=== PATIENT | female | born 1955 | race Caucasian/White ===

== ENCOUNTER → 2018-10-22 11:05 | Outpatient (CLI) | payer OTHER, SELFPAY ==
[2018-10-22 12:08] LABS: Add Manual Diff / Slide Review NO; Basophils Percent Auto 0.7 % (0-2); Eosinophils Percent Auto 2.7 % (2-4); Hematocrit 41.5 % (36-46); Hemoglobin 13.5 g/dL (12.0-16.0); Lymphocytes Percent Auto 32.8 % (25-40); Mean Corpuscular HGB Conc 32.6 % (30-36); Mean Corpuscular Hemoglobin 28.9 PG (26-34); Mean Corpuscular Volume 88.7 fL (80-100); Monocytes Percent Auto 11.3 % (3-14); Neutrophils Absolute Auto 2500 /uL (1500-7000); Neutrophils Percent Auto 52.5 % (50-75); Platelet Count 313 X10^3/uL (150-400); Red Blood Cell Count 4.68 X10^6/uL (4.0-5.2); Red Cell Distribution Width 14.5 % (11.6-14.8); White Blood Cell Count 4.8 X10^3/uL (4.5-11.0)
[2018-10-22 13:15] LABS: Alanine Aminotransferase 59 IU/L (9-52); Albumin 4.1 g/dL (3.5-5.0); Albumin Globulin Ratio 1.6 (1.0-2.8); Alkaline Phosphatase 79 U/L (38-126); Aspartate Aminotransferase 37 IU/L (14-36); BUN Creatinine Ratio 15.6 (6-22); Bilirubin Total 0.6 mg/dL (0.2-1.3); Blood Urea Nitrogen 14 mg/dL (7-17); Calcium 9.4 mg/dL (8.4-10.2); Carbon Dioxide 26 mmol/L (22-32); Chloride 104 mmol/L (98-107); Cholesterol 190 mg/dL (140-199); Estimated Glomerular Filt Rate > 60.0 mL/min (>60); Globulin 2.6 g/dL (1.7-4.1); Glucose 88 mg/dL (80-110); HDL Cholesterol 76 mg/dL (40-60); HEMOLYSIS < 15 (0-50); LDL Cholesterol Calculated 95 mg/dL (<100); Potassium 5.3 mmol/L (3.4-5.1); Sodium 142 mmol/L (137-145); Total Protein 6.7 g/dL (6.3-8.2); Triglycerides 93 mg/dL (35-150)
[2018-10-22 15:17] LABS: Thyroid Stimulating Hormone 1.98 uIU/mL (0.47-4.68)
== END ==
PROVIDERS: PCP Student in an Organized Health Care Education/Training Program; Visit Provider Student in an Organized Health Care Education/Training Program
DX: E03.9 Hypothyroidism, unspecified (principal); E61.1 Iron deficiency; Z13.220 Encounter for screening for lipoid disorders
CPT/HCPCS: 36415; 80053; 80061; 84443; 85025

== ENCOUNTER → 2018-12-01 14:46 | Outpatient (CLI) | payer OTHER, SELFPAY ==
--- NOTE | 2018-12-01 | DI.MG.S_ITS ---
BILATERAL DIGITAL SCREENING MAMMOGRAM 3D/2D WITH CAD: 12/01/2018 CLINICAL: Routine screening. Family history of breast cancer. Comparison is made to exams dated: 10/04/2016 mammogram, 11/14/2014 mammogram, and 11/12/2013 mammogram - . There are scattered fibroglandular elements in both breasts. Current study was also evaluated with a Computer Aided Detection (CAD) system. No significant masses, calcifications, or other findings are seen in either breast. There has been no significant interval change. IMPRESSION: NEGATIVE There is no mammographic evidence of malignancy. A 1 year screening mammogram is recommended. This exam was interpreted at Station ID: [id number]. NOTE: For mammograms, a report in lay terms will be sent to the patient. Approximately 15% of breast malignancies will not be visualized mammographically. In the management of a palpable breast mass, a negative mammogram must not discourage biopsy of a clinically suspicious lesion. Electronically Signed By: Wilner garcía/koffi:12/01/2018 16:36:05 letter sent: Normal Exam ACR BI-RADS Category 1: Negative 3341F
== END ==
PROVIDERS: PCP Student in an Organized Health Care Education/Training Program; Visit Provider Student in an Organized Health Care Education/Training Program
DX: Z12.31 Encounter for screening mammogram for malignant neoplasm of breast (principal); Z80.3 Family history of malignant neoplasm of breast
CPT/HCPCS: 77063; 77067

== ENCOUNTER → 2019-10-25 11:38 | Outpatient (CLI) | payer OTHER, SELFPAY ==
[2019-10-25 12:48] LABS: Add Manual Diff / Slide Review NO; Basophils Absolute Auto 0 /uL (0-100); Basophils Percent Auto 0.7 % (0-2); Eosinophils Absolute Auto 200 /uL (0-450); Eosinophils Percent Auto 3.2 % (2-4); Hematocrit 38.8 % (36-46); Hemoglobin 13.3 g/dL (12.0-16.0); Lymphocytes Absolute Auto 1400 /uL (1100-4500); Mean Corpuscular HGB Conc 34.3 % (30-36); Mean Corpuscular Hemoglobin 30.3 PG (26-34); Mean Corpuscular Volume 88.5 fL (80-100); Monocytes Absolute Auto 500 /uL (0-900); Monocytes Percent Auto 9.4 % (3-14); Neutrophils Absolute Auto 2900 /uL (1500-7000); Neutrophils Percent Auto 58.7 % (50-75); Platelet Count 385 X10^3/uL (150-400); Red Blood Cell Count 4.39 X10^6/uL (4.0-5.2); Red Cell Distribution Width 13.5 % (11.6-14.8); White Blood Cell Count 4.9 X10^3/uL (4.5-11.0)
[2019-10-25 13:26] LABS: Alanine Aminotransferase 18 IU/L (<35); Albumin 3.9 g/dL (3.5-5.0); Albumin Globulin Ratio 1.5 (1.0-2.8); Alkaline Phosphatase 73 U/L (38-126); Aspartate Aminotransferase 23 IU/L (14-36); BUN Creatinine Ratio 21.4 (6-22); Bilirubin Total 0.3 mg/dL (0.2-1.3); Blood Urea Nitrogen 15 mg/dL (7-17); Calcium 9.4 mg/dL (8.4-10.2); Carbon Dioxide 30 mmol/L (22-32); Chloride 102 mmol/L (98-107); Cholesterol 163 mg/dL (140-199); Estimated Glomerular Filt Rate > 60.0 mL/min (>60); Globulin 2.6 g/dL (1.7-4.1); Glucose 97 mg/dL (80-110); HDL Cholesterol 57 mg/dL (40-60); HEMOLYSIS < 15 (0-50); LDL Cholesterol Calculated 83 mg/dL (<100); Sodium 140 mmol/L (137-145); Total Protein 6.5 g/dL (6.3-8.2); Triglycerides 115 mg/dL (35-150)
[2019-10-25 13:28] LABS: Potassium 5.5 mmol/L (3.4-5.1)
[2019-10-25 13:59] LABS: Thyroid Stimulating Hormone 1.68 uIU/mL (0.47-4.68)
== END ==
PROVIDERS: PCP Student in an Organized Health Care Education/Training Program; Visit Provider Student in an Organized Health Care Education/Training Program
DX: E03.9 Hypothyroidism, unspecified (principal); E61.1 Iron deficiency
CPT/HCPCS: 36415; 80053; 80061; 84443; 85025

== ENCOUNTER → 2019-11-01 19:12 | Outpatient (ROUT) | payer OTHER, SELFPAY ==
[2019-11-01 19:27] LABS: Carbon Dioxide 30 mmol/L (22-32); Chloride 100 mmol/L (98-107); HEMOLYSIS < 15 (0-50); Potassium 4.5 mmol/L (3.4-5.1); Sodium 137 mmol/L (137-145)
== END ==
PROVIDERS: PCP Student in an Organized Health Care Education/Training Program; Visit Provider Student in an Organized Health Care Education/Training Program
DX: E87.5 Hyperkalemia (principal)
CPT/HCPCS: 80051

== ENCOUNTER → 2020-10-30 13:57 | Outpatient (CLI) | payer MEDICARE, OTHER, SELFPAY ==
[2020-10-30 14:24] LABS: Add Manual Diff / Slide Review NO; Basophils Absolute Auto 0 /uL (0-100); Mean Corpuscular Volume 89.1 fL (80-100); Monocytes Absolute Auto 500 /uL (0-900); Neutrophils Absolute Auto 3000 /uL (1500-7000); Red Cell Distribution Width 13.9 % (11.6-14.8); White Blood Cell Count 5.5 X10^3/uL (4.5-11.0)
[2020-10-30 15:04] LABS: Alanine Aminotransferase 19 IU/L (<35); Albumin 4.1 g/dL (3.5-5.0); Albumin Globulin Ratio 1.6 (1.0-2.8); Alkaline Phosphatase 72 U/L (38-126); Aspartate Aminotransferase 26 IU/L (14-36); BUN Creatinine Ratio 18.1 (6-22); Bilirubin Total 0.3 mg/dL (0.2-1.3); Blood Urea Nitrogen 13 mg/dL (7-17); Calcium 8.9 mg/dL (8.4-10.2); Carbon Dioxide 29 mmol/L (22-32); Chloride 102 mmol/L (98-107); Estimated Glomerular Filt Rate > 60.0 mL/min (>60); Globulin 2.6 g/dL (1.7-4.1); Glucose 93 mg/dL (80-110); HEMOLYSIS < 15 (0-50); Potassium 4.4 mmol/L (3.4-5.1); Sodium 134 mmol/L (137-145); Total Protein 6.7 g/dL (6.3-8.2)
[2020-10-30 15:34] LABS: Thyroid Stimulating Hormone 0.207 uIU/mL (0.47-4.68)
[2020-10-30 18:08] LABS: Basophils Percent Auto 0.9 % (0-2); Eosinophils Absolute Auto 200 /uL (0-450); Hematocrit 40.6 % (36-46); Hemoglobin 13.5 g/dL (12.0-16.0); Lymphocytes Absolute Auto 1600 /uL (1100-4500); Lymphocytes Percent Auto 30.1 % (25-40); Mean Corpuscular HGB Conc 33.2 % (30-36); Mean Corpuscular Hemoglobin 29.6 PG (26-34); Monocytes Percent Auto 9.8 % (3-14); Neutrophils Percent Auto 55.2 % (50-75); Platelet Count 286 X10^3/uL (150-400); Red Blood Cell Count 4.56 X10^6/uL (4.0-5.2)
== END ==
PROVIDERS: PCP Student in an Organized Health Care Education/Training Program; Referring Provider Student in an Organized Health Care Education/Training Program; Visit Provider Student in an Organized Health Care Education/Training Program
DX: E87.5 Hyperkalemia (principal); E03.9 Hypothyroidism, unspecified
CPT/HCPCS: 36415; 80053; 84443; 85025

== ENCOUNTER → 2020-11-16 16:05 | Outpatient (CLI) | payer MEDICARE, OTHER, SELFPAY ==
--- NOTE | 2020-11-16 | DI.MG.S_ITS ---
BILATERAL DIGITAL SCREENING MAMMOGRAM 3D/2D WITH CAD: 11/16/2020 CLINICAL: Routine screening. Family history of breast cancer. Comparison is made to exams dated: 12/01/2018 mammogram, 10/04/2016 mammogram, and 11/14/2014 mammogram - [facility]. There are scattered fibroglandular elements in both breasts. Current study was also evaluated with a Computer Aided Detection (CAD) system. No significant masses, calcifications, or other findings are seen in either breast. There has been no significant interval change. IMPRESSION: NEGATIVE There is no mammographic evidence of malignancy. A 1 year screening mammogram is recommended. This exam was interpreted at Station ID: [id number]. NOTE: For mammograms, a report in lay terms will be sent to the patient. Approximately 15% of breast malignancies will not be visualized mammographically. In the management of a palpable breast mass, a negative mammogram must not discourage biopsy of a clinically suspicious lesion. Electronically Signed By: Yayo Vargas acr/penrad:11/16/2020 17:18:56 letter sent: Normal Exam ACR BI-RADS Category 1: Negative 3341F
== END ==
PROVIDERS: PCP Student in an Organized Health Care Education/Training Program; Referring Provider Student in an Organized Health Care Education/Training Program; Visit Provider Student in an Organized Health Care Education/Training Program
DX: Z12.31 Encounter for screening mammogram for malignant neoplasm of breast (principal); Z80.3 Family history of malignant neoplasm of breast
CPT/HCPCS: 77063; 77067

== ENCOUNTER → 2020-12-20 09:55 | Outpatient (CLI) | payer MEDICARE, OTHER, SELFPAY ==
--- NOTE | 2021-01-09 08:24 | P.HOLT.S_ITS ---
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 Date Patient Seen: 12/20/20 Requesting provider: Kalani Recinos Indication: Palpitations Duration of monitoring (days): 7 Diary information: There were 23 patient triggered events and 11 patient diary entries Patient triggered events were associated with (within 45 seconds) sinus rhythm, PVCs, PACs, and SVT Patient diary events were associated with (within 45 seconds) sinus rhythm, PACs, and SVT Data: Minimum heart rate identified was 41 beats per minute at 04:50 on 12/22/2020 Maximum sinus heart rate was 126 beats per minute at 14:27 on 12/23/2020 Maximum overall heart rate was 169 beats per minute at 13:38 on 12/25/2020 during a 4 beat run of SVT Less than 1% of identified beats rather ventricular supraventricular ectopic in origin There were 10 runs of SVT the fastest being the 4 beat run noted above in the longest lasting only 9 beats at a rate of 108 beats per minute (which suggest atrial tachycardia rather than true SVT) 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 Based on patient events it is possible that either SVT or PACs or PVCs are source of patient's symptoms of palpitations. All of these events should be considered rare in occurrence overall based on this study. No more serious dysrhythmias identified on this study. Clinical correlation suggested
== END ==
PROVIDERS: PCP Student in an Organized Health Care Education/Training Program; Referring Provider Student in an Organized Health Care Education/Training Program; Visit Provider Student in an Organized Health Care Education/Training Program
DX: R00.2 Palpitations (principal)
CPT/HCPCS: 93242; 93244

== ENCOUNTER → 2021-01-03 10:48 | Outpatient (CLI) | payer MEDICARE, OTHER, SELFPAY ==
[2021-01-03 12:30] LABS: TSH w/ Reflex to FT4 0.56 uIU/mL (0.47-4.68)
== END ==
PROVIDERS: PCP Student in an Organized Health Care Education/Training Program; Referring Provider Student in an Organized Health Care Education/Training Program; Visit Provider Student in an Organized Health Care Education/Training Program
DX: E03.9 Hypothyroidism, unspecified (principal)
CPT/HCPCS: 36415; 84443

== ENCOUNTER → 2021-09-09 11:45 | Outpatient (CLI) | payer MEDICARE, OTHER, SELFPAY ==
[2021-09-09 12:46] LABS: COVID19 -Nasal RAPID POSITIVE (Negative)
== END ==
PROVIDERS: PCP Student in an Organized Health Care Education/Training Program; Referring Provider Physician Assistant; Visit Provider Physician Assistant
DX: U07.1 COVID-19 (principal)
CPT/HCPCS: 87635

== ENCOUNTER → 2021-12-03 08:20 | Outpatient (CLI) | payer MEDICARE, OTHER, SELFPAY ==
[2021-12-03 09:38] LABS: Hematocrit 38.7 % (36-46); Mean Corpuscular HGB Conc 33.6 % (30-36); Mean Corpuscular Hemoglobin 30.3 PG (26-34); Mean Corpuscular Volume 90.2 fL (80-100); Platelet Count 270 X10^3/uL (150-400); Red Blood Cell Count 4.29 X10^6/uL (4.0-5.2); Red Cell Distribution Width 14.7 % (11.6-14.8); White Blood Cell Count 3.1 X10^3/uL (4.5-11.0)
[2021-12-03 10:14] LABS: Alanine Aminotransferase 17 IU/L (<35); Albumin Globulin Ratio 1.4 (1.0-2.8); Alkaline Phosphatase 60 U/L (38-126); Aspartate Aminotransferase 27 IU/L (14-36); BUN Creatinine Ratio 19.4 (6-22); Bilirubin Total 0.5 mg/dL (0.2-1.3); Blood Urea Nitrogen 14 mg/dL (7-17); Calcium 8.7 mg/dL (8.4-10.2); Carbon Dioxide 28 mmol/L (22-32); Chloride 105 mmol/L (98-107); Cholesterol 176 mg/dL (140-199); Estimated Glomerular Filt Rate > 60.0 mL/min (>60); Globulin 2.8 g/dL (1.7-4.1); Glucose 90 mg/dL (80-110); HDL Cholesterol 75 mg/dL (40-60); HEMOLYSIS < 15 (0-50); LDL Cholesterol Calculated 87 mg/dL (<100); Potassium 3.8 mmol/L (3.4-5.1); Sodium 136 mmol/L (137-145); Total Protein 6.8 g/dL (6.3-8.2); Triglycerides 68 mg/dL (35-150)
[2021-12-03 10:44] LABS: Thyroid Stimulating Hormone 0.445 uIU/mL (0.47-4.68)
== END ==
PROVIDERS: PCP Student in an Organized Health Care Education/Training Program; Referring Provider Student in an Organized Health Care Education/Training Program; Visit Provider Student in an Organized Health Care Education/Training Program
DX: E03.9 Hypothyroidism, unspecified (principal); Z00.00 Encounter for general adult medical examination without abnormal findings
CPT/HCPCS: 36415; 80053; 80061; 84443; 85027

== ENCOUNTER → 2022-10-19 18:07 | Outpatient (CLI) | payer MEDICARE, OTHER, SELFPAY ==
[2022-10-19 19:16] LABS: Influenza A - CEPHEID Flu A POSITIVE (NEGATIVE); Influenza B - CEPHEID Flu B NEGATIVE (NEGATIVE); Respiratory Syncytial Virus Negative (Negative)
[2022-10-19 19:21] LABS: COVID-19 CEPHEID 4-PLEX PCR Negative (Negative)
== END ==
PROVIDERS: PCP Student in an Organized Health Care Education/Training Program; Visit Provider Registered Nurse
DX: J06.9 Acute upper respiratory infection, unspecified (principal); Z20.822 Contact with and (suspected) exposure to COVID-19
CPT/HCPCS: 0241U

== ENCOUNTER → 2022-11-20 10:52 | Outpatient (CLI) | payer MEDICARE, OTHER, SELFPAY ==
--- NOTE | 2022-11-20 | DI.MG.S_ITS ---
BILATERAL DIGITAL SCREENING MAMMOGRAM 3D/2D WITH CAD: 11/20/2022 CLINICAL: Routine screening. Family history of breast cancer. Comparison is made to exams dated: 11/16/2020 mammogram, 12/01/2018 mammogram, and 10/04/2016 mammogram - [facility]. There are scattered areas of fibroglandular density in both breasts (category b / 25%-50% glandular tissue). Current study was also evaluated with a Computer Aided Detection (CAD) system. No significant masses, calcifications, or other findings are seen in either breast. There has been no significant interval change. IMPRESSION: NEGATIVE There is no mammographic evidence of malignancy. A 1 year screening mammogram is recommended. Based on the Tyrer Cuzick model (a risk assessment model) the patient's lifetime risk is 4.6% and her 10 year risk is 2.4%. According to the ACR, ACS, and NCCN guidelines, an annual breast MRI exam along with mammogram is recommended if the patient's lifetime risk is 20% or greater. This exam was interpreted at Station ID: [id number]. NOTE: For mammograms, a report in lay terms will be sent to the patient. Approximately 15% of breast malignancies will not be visualized mammographically. In the management of a palpable breast mass, a negative mammogram must not discourage biopsy of a clinically suspicious lesion. Electronically Signed By: Miladys avila/koffi:11/20/2022 12:51:14 letter sent: Normal Exam ACR BI-RADS Category 1: Negative 3341F
== END ==
PROVIDERS: PCP Student in an Organized Health Care Education/Training Program; Referring Provider Student in an Organized Health Care Education/Training Program; Visit Provider Student in an Organized Health Care Education/Training Program
DX: Z12.31 Encounter for screening mammogram for malignant neoplasm of breast (principal); Z80.3 Family history of malignant neoplasm of breast
CPT/HCPCS: 77063; 77067

== ENCOUNTER 2024-05-11 18:09 | Emergency (ER) | payer MEDICARE, OTHER, SELFPAY ==
[2024-05-11] VITALS (7 sets, daily range): BP systolic 165–214; BP diastolic 72–93; PULSE 54–66; RESP 12–22; TEMP 36.7; O2SAT 97–99; BMI 25.4
--- NOTE | 2024-05-11 18:35 | EKG_ITS ---
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
--- NOTE | 2024-05-11 18:48 | DI.RAD.S_ITS ---
PROCEDURE: XR CHEST 1V INDICATIONS: chest pain TECHNIQUE: One view of the chest was acquired. COMPARISON: None. FINDINGS: Surgical changes and devices: None. Lungs and pleura: Lungs are clear. No pleural effusions or pneumothorax. Mediastinum: Mediastinal contours appear normal. Heart size is normal. Bones and chest wall: No suspicious bony lesions. Overlying soft tissues appear unremarkable. IMPRESSION: No acute cardiopulmonary abnormality is seen. Dictated by: Ervin Oneill M.D. on 05/11/2024 at 19:41 Approved by: Ervin Oneill M.D. on 05/11/2024 at 19:41
[2024-05-11 19:16] LABS: Add Manual Diff / Slide Review NO; Basophils Absolute Auto 0 /uL (0-100); Basophils Percent Auto 0.6 % (0-2); Eosinophils Absolute Auto 200 /uL (0-450); Eosinophils Percent Auto 4.6 % (2-4); Hematocrit 33.7 % (36-46); Hemoglobin 11.3 g/dL (12.0-16.0); INR 0.9 (0.9-1.3); Lymphocytes Absolute Auto 1500 /uL (1100-4500); Lymphocytes Percent Auto 29.6 % (25-40); Mean Corpuscular HGB Conc 33.5 % (30-36); Mean Corpuscular Hemoglobin 28.1 PG (26-34); Mean Corpuscular Volume 83.7 fL (80-100); Monocytes Absolute Auto 600 /uL (0-900); Monocytes Percent Auto 11.7 % (3-14); Neutrophils Absolute Auto 2800 /uL (1500-7000); Neutrophils Percent Auto 53.5 % (50-75); Platelet Count 344 X10^3/uL (150-400); Prothrombin Time 10.8 SECONDS (9.4-12.5); Red Blood Cell Count 4.03 X10^6/uL (4.0-5.2); White Blood Cell Count 5.1 X10^3/uL (4.5-11.0)
[2024-05-11 19:18] LABS: PTT Partial Thromboplastin Tim 29 SECONDS (25.1-36.5)
[2024-05-11 19:22] LABS: Alanine Aminotransferase 25 IU/L (<35); Albumin 4.3 g/dL (3.5-5.0); Albumin Globulin Ratio 1.3 (1.0-2.8); Alkaline Phosphatase 79 U/L (38-126); BUN Creatinine Ratio 16.7 (6-22); Bilirubin Total 0.8 mg/dL (0.2-1.3); Blood Urea Nitrogen 13 mg/dL (7-17); Calcium 8.4 mg/dL (8.4-10.2); Carbon Dioxide 24 mmol/L (22-32); Chloride 103 mmol/L (98-107); Creatine Kinase 150 U/L (30-135); Estimated Glomerular Filt Rate > 60 mL/min (>60); Globulin 3.2 g/dL (1.7-4.1); Glucose 104 mg/dL (80-110); Lipase 59 U/L (23-300); Magnesium 1.8 mg/dL (1.6-2.3); Sodium 135 mmol/L (137-145); Total Protein 7.5 g/dL (6.3-8.2)
--- NOTE | 2024-05-11 19:22 | ED.GENADULT ---
HPI - General Adult General Chief complaint: Hypertension Stated complaint: HTN, sent by [facility] Time Seen by Provider: 05/11/24 19:20 Source: patient, RN notes reviewed and old records reviewed Mode of arrival: Wheelchair Limitations: no limitations History of Present Illness HPI narrative: 68-year-old female with a history of hypothyroidism who presents with complaint of feeling off she describes as having a little bit of lightheadedness in her head, burning in her eyes and her face feeling. She states no headaches. She states it has been intermittent waxing and waning intensity over the last 2-3 days. She denies any headaches, no fevers or chills no cold cough or congestion. No changes to vision suddenly. She does note that she has had some migraine auras which she has had on and off in the past and sometimes associated with actual migraines. Migraines but has noted the or as on and off she states this is happened in the past as well. She does think it seems to be worse with the heat recently. Patient states no chest pain or shortness of breath. No nausea or vomiting except for episode where she felt nauseated and lightheaded week ago. Patient states no issues with bowel movements no constipation or diarrhea. No black or bloody stools. No dysuria urgency frequency. No new numbness tingling weakness or difficulty with movement. No issues with gait. No syncope. 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 She also states has been very hot in the house and does seem to be affecting her. States only daily medication is Synthroid. Patient does have drug allergies to cephalexin, silastic, imipenem and penicillins. No tobacco, no regular alcohol, no recreational drugs. Related Data Home Medications Medication Instructions Recorded Confirmed levothyroxine 125 mcg tablet 112 mcg PO QDAY #0 tabs 01/31/21 01/31/21 (Synthroid) melatonin 3 mg capsule 3 mg PO BEDTIME PRN 01/31/21 01/31/21 Allergies Allergy/AdvReac Type Severity Reaction Status Date / Time cephalexin [From Keflex] Allergy Mild rash Verified 05/11/24 18:55 cilastatin [From Primaxin] Allergy Mild rash Verified 05/11/24 18:55 imipenem [From Primaxin] Allergy Mild rash Verified 05/11/24 18:55 Penicillins Allergy Mild rash Verified 05/11/24 18:55 Review of Systems Review of Systems ROS Unobtainable: All systems reviewed & are unremarkable except as noted in HPI and below Patient History Medical History COVID-19 virus infection Family History Father Loud snoring Heart disease Mother Dementia Family/Other Sleep apnea Obesity Diabetes mellitus Depression Bipolar disorder ADD (attention deficit disorder) Social History Smoking Status: Never smoker Smoking Status: Never smoker Substance Use Type: does not use Exam Narrative Exam Narrative: GEN: well nourished, well appearing female, alert and oriented x 3, patient appears to be in mild distress. HEENT: Atraumatic, pupils are equal round reactive to light, extraocular movements are intact, nares are clear, TMs are clear with no fluid, there is no conjunctival pallor. Throat is clear without any exudates, erythema, tonsillar enlargement or uvular deviation HEART: Regular rate and rhythm without murmur, clicks, rubs. No carotid bruits, pulses are equal in upper and lower extremities LUNGS:Lungs clear to auscultation, no wheezes, rales, crackles, chest moves symmetrically ABD:bowel sounds normal, soft, non-tender, no guarding, rebound, rigidity, no masses noted, no hepatosplenomegaly :No CVA tenderness MSCL: Non-tender, no muscle atrophy, muscles strength 5/5 upper and lower extremities, full range of motion, normal gait NEURO:CN 2-12 intact, sensation normal, reflexes 2/4 upper and lower extremities. finger nose finger test normal, heel adam test normal SKIN: No rash, erythema or other skin changes noted Initial Vital Signs Initial Vital Signs: Vital Signs Temperature 98.0 F 05/11/24 18:23 Pulse Rate 66 05/11/24 18:23 Respiratory Rate 16 05/11/24 18:23 Blood Pressure 214/93 H 05/11/24 18:23 Pulse Oximetry 99 05/11/24 18:23 Oxygen Delivery Method Room Air 05/11/24 18:23 Course Orders Ordered: ED Orders 05/11/24 18:45 Complete Blood Count AUTO DIFF Stat Comprehensive Metabolic Panel Stat Lipase Stat Magnesium Stat NT-proBNP (BNP-Adult 18+) Stat PTT Partial Thromboplastin Ye Stat Prothrombin Time INR Stat Troponin & CK Cardiac Panel Stat 05/11/24 18:48 XR chest 1V Stat EKG-12 Lead Stat Vital Signs Vital signs: Vital Signs - 8 hr 05/11/24 18:23 05/11/24 18:38 05/11/24 18:40 Temperature 98.0 F Pulse Rate 66 63 Respiratory Rate 16 Blood Pressure 214/93 H 196/81 H Pulse Oximetry 99 Oxygen Delivery Method Room Air 05/11/24 18:40 05/11/24 19:00 05/11/24 19:01 Temperature Pulse Rate 59 L 54 L Respiratory Rate 12 Blood Pressure 165/72 H Pulse Oximetry 98 97 Oxygen Delivery Method 05/11/24 19:01 05/11/24 19:30 05/11/24 19:31 Temperature Pulse Rate 56 L 63 Respiratory Rate 13 22 Blood Pressure 201/88 H Pulse Oximetry 99 99 Oxygen Delivery Method Room Air 05/11/24 19:31 Temperature Pulse Rate 63 Respiratory Rate 20 Blood Pressure Pulse Oximetry 99 Oxygen Delivery Method Room Air Medical Decision Making Lab Data 05/11/24 18:45 05/11/24 18:45 Labs: Lab Results 05/11/24 Range/Units 18:45 WBC 5.1 (4.5-11.0) X10^3/uL RBC 4.03 (4.0-5.2) X10^6/uL Hgb 11.3 L (12.0-16.0) g/dL Hct 33.7 L (36-46) % MCV 83.7 (80-100) fL MCH 28.1 (26-34) PG MCHC 33.5 (30-36) % RDW 15.0 H (11.6-14.8) % Plt Count 344 (150-400) X10^3/uL Neut % (Auto) 53.5 (50-75) % Lymph % (Auto) 29.6 (25-40) % [place] % (Auto) 11.7 (3-14) % Eos % (Auto) 4.6 H (2-4) % Baso % (Auto) 0.6 (0-2) % Neut # (Auto) 2800 (8305-5780) /uL Lymph # (Auto) 1500 (7609-1578) /uL [place] # (Auto) 600 (0-900) /uL Eos # (Auto) 200 (0-450) /uL Baso # (Auto) 0 (0-100) /uL PT 10.8 (9.4-12.5) SECONDS INR 0.9 (0.9-1.3) APTT 29 (25.1-36.5) SECONDS Sodium 135 L (137-145) mmol/L Potassium 4.1 (3.4-5.1) mmol/L Chloride 103 (98-107) mmol/L Carbon Dioxide 24 (22-32) mmol/L BUN 13 (7-17) mg/dL Creatinine 0.78 (0.52-1.04) mg/dL Estimated GFR > 60 (>60) mL/min BUN/Creatinine Ratio 16.7 (6-22) Glucose 104 (80-110) mg/dL Calcium 8.4 (8.4-10.2) mg/dL Magnesium 1.8 (1.6-2.3) mg/dL Total Bilirubin 0.8 (0.2-1.3) mg/dL AST 53 H (14-36) IU/L ALT 25 (<35) IU/L Alkaline Phosphatase 79 (38-126) U/L Total Creatine Kinase 150 H (30-135) U/L Troponin I < 0.012 (0.01-0.034) ng/mL NT-Pro-B Natriuret Pep 77 (<125) pg/mL Total Protein 7.5 (6.3-8.2) g/dL Albumin 4.3 (3.5-5.0) g/dL Globulin 3.2 (1.7-4.1) g/dL Albumin/Globulin Ratio 1.3 (1.0-2.8) Lipase 59 (23-300) U/L Imaging Data Chest x-ray: Radiologist's Impression: [address] [address] XRay Report? Signed Patient: Samantha Patel MR#: [id number] : 1955 Acct:[id number] Age/Sex: 68 / F Date of Service: 05/11/24 Loc: ED Accession Number: [id number]? ? Procedure: XR chest 1V Ordering Provider: Kike Campoverde MD PROCEDURE:? XR CHEST 1V ? INDICATIONS:? chest pain ? TECHNIQUE:? One view of the chest was acquired.?? ? COMPARISON:? [facility], CR, XR CHEST 2V, 04/16/2023, 15:44.? [facility], CR, XR? CHEST 2V, 02/26/2019, 15:31. ? FINDINGS:?? ? Surgical changes and devices:? None.?? ? Lungs and pleura:? Lungs are clear.? No pleural effusions or pneumothorax.?? ? Mediastinum:? Mediastinal contours appear normal.? Heart size is normal.?? ? Bones and chest wall:? No suspicious bony lesions.? Overlying soft tissues appear? unremarkable.? IMPRESSION:?? ? No acute cardiopulmonary abnormality is seen.? Dictated by: Jay Koenig M.D. on 05/11/2024 at 15:26? ? ? Approved by: Jay Koenig M.D. on 05/11/2024 at 15:26? ? ECG Data Attestation: I personally reviewed and interpreted this ECG as follows: Interpretation: Sinus bradycardia rate of 56 [place] 180 QRS 88 QTC of 414, no acute ST elevation. Left anterior fascicular block. No priors for comparison. MDM Narrative Medical decision making narrative: Labs show white count of 5.1 hemoglobin 11.3 platelets of 344 coags are negative, CMP shows sodium 135 otherwise appropriate electrolytes, renal function BUN, Mag 1.8, AST is 53, ALT alk-phos and bilirubin are normal range. Total CK is 150 with a troponin less than 0.012 and a BNP of 77, lipase of 59. Chest x-ray EKG shows left anterior fascicular block no other acute changes. No priors for comparison. Patient's blood pressures were quite elevated upon arrival, improving during her stay here although increased again while I was talking to her. Patient is not on any normal blood pressure medications does not check her blood pressure on a regular basis. Discussed with patient she has been quite stressed caregiving for her family as well as the heat, she does not have air conditioning in her home has been fairly warm. She is feeling improved here. Her blood pressure has been somewhat labile dropping down and up throughout her stay. Plan for discharge home with return precautions, all questions answered. She does have a way to check her blood pressure we will plan to continue to check this week and if staying quite elevated patient is to follow up with primary care to start medication. If she is any red flag symptoms she is to return to the ED. Discharge Plan Departure Patient Disposition: Home Clinical Impression: Lightheadedness Activity Restrictions/Additional Instructions: Follow up with your physician if your blood pressures continued to be elevated to start a medication. Please check your blood pressure once daily. Please return for severe headaches, sudden vision changes, new chest pain or shortness of breath, passing out, new swelling of extremities, persistent vomiting, new numbness tingling or weakness, difficulty with movement or speech or other new or concerning changes. Prescriptions: No Action levothyroxine [Synthroid] 125 mcg tablet 112 mcg PO QDAY Qty: 0 melatonin 3 mg capsule 3 mg PO BEDTIME PRN Referrals: Kalani Recinos PA-C [Primary Care Provider] - Stand Alone Forms: Patient Portal/API
[2024-05-11 19:24] LABS: HEMOLYSIS 107 (0-50)
[2024-05-11 19:26] LABS: Aspartate Aminotransferase 53 IU/L (14-36)
[2024-05-11 19:27] LABS: Potassium 4.1 mmol/L (3.4-5.1)
[2024-05-11 19:33] LABS: NT-proBNP (BNP-Adult 18+) 77 pg/mL (<125); Troponin I < 0.012 ng/mL (0.01-0.034)
--- NOTE | 2024-05-11 20:05 | PC.NURSE ---
Patient's discharge BP is 201/88. Dr. Pierson aware and no new orders at this time. Dr. Pierson is comfortable discharging patient. Patient education given. See discharge note.
== END 2024-05-11 20:06 | disposition home or self-care (01) ==
PROVIDERS: Emergency Provider Emergency Medicine; PCP Student in an Organized Health Care Education/Training Program
DX: R42 Dizziness and giddiness (principal); R07.9 Chest pain, unspecified; R00.1 Bradycardia, unspecified; I44.4 Left anterior fascicular block
CPT/HCPCS: 36415; 71045; 80053; 82550; 83690; 83735; 83880; 84484; 85025; 85610; 85730; 93005; 99283; 99284

== ENCOUNTER 2024-08-20 21:28 | Emergency (ER) | payer MEDICARE, OTHER, SELFPAY ==
[2024-08-20 21:43] VITALS: BP 194/85; PULSE 68; RESP 16; TEMP 36.4; O2SAT 99; BMI 26.2
--- NOTE | 2024-08-20 21:51 | DI.RAD.S_ITS ---
PROCEDURE: XR CHEST 1V INDICATIONS: chest pain TECHNIQUE: One view of the chest was acquired. COMPARISON: [facility], CR, XR CHEST 1V, 05/11/2024, 18:50. FINDINGS: Surgical changes and devices: None. Lungs and pleura: Lungs are clear. No pleural effusions or pneumothorax. Mediastinum: Aortic arch calcifications. Mediastinal contours appear normal. Heart size is normal. Bones and chest wall: No suspicious bony lesions. Overlying soft tissues appear unremarkable. IMPRESSION: No acute cardiopulmonary abnormality is seen. Dictated by: Shashank Fay M.D. on 08/20/2024 at 22:32 Approved by: Shashank Fay M.D. on 08/20/2024 at 22:32
--- NOTE | 2024-08-20 22:00 | EKG_ITS ---
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
[2024-08-20 22:24] LABS: Add Manual Diff / Slide Review NO; Basophils Absolute Auto 0 /uL (0-100); Basophils Percent Auto 0.9 % (0-2); Eosinophils Absolute Auto 200 /uL (0-450); Eosinophils Percent Auto 4.4 % (2-4); Hemoglobin 10.8 g/dL (12.0-16.0); Lymphocytes Absolute Auto 1600 /uL (1100-4500); Lymphocytes Percent Auto 30.7 % (25-40); Mean Corpuscular HGB Conc 32.7 % (30-36); Mean Corpuscular Hemoglobin 25.9 PG (26-34); Mean Corpuscular Volume 79.1 fL (80-100); Monocytes Absolute Auto 700 /uL (0-900); Monocytes Percent Auto 13.1 % (3-14); Neutrophils Absolute Auto 2700 /uL (1500-7000); Neutrophils Percent Auto 50.9 % (50-75); Platelet Count 390 X10^3/uL (150-400); Red Blood Cell Count 4.17 X10^6/uL (4.0-5.2); Red Cell Distribution Width 15.5 % (11.6-14.8); White Blood Cell Count 5.3 X10^3/uL (4.5-11.0)
[2024-08-20 22:30] LABS: INR 0.9 (0.9-1.3); Prothrombin Time 10.1 SECONDS (9.4-12.5)
[2024-08-20 22:32] LABS: PTT Partial Thromboplastin Tim 31 SECONDS (25.1-36.5)
[2024-08-20 22:34] LABS: Alanine Aminotransferase 25 IU/L (<35); Albumin 4.2 g/dL (3.5-5.0); Albumin Globulin Ratio 1.4 (1.0-2.8); Alkaline Phosphatase 74 U/L (38-126); Aspartate Aminotransferase 27 IU/L (14-36); BUN Creatinine Ratio 19.4 (6-22); Bilirubin Total 0.3 mg/dL (0.2-1.3); Blood Urea Nitrogen 18 mg/dL (7-17); Calcium 9.3 mg/dL (8.4-10.2); Carbon Dioxide 27 mmol/L (22-32); Chloride 103 mmol/L (98-107); Creatine Kinase 154 U/L (30-135); Estimated Glomerular Filt Rate > 60 mL/min (>60); Globulin 3.1 g/dL (1.7-4.1); Glucose 100 mg/dL (80-110); HEMOLYSIS < 15 (0-50); Lipase 93 U/L (23-300); Magnesium 1.7 mg/dL (1.6-2.3); Potassium 3.5 mmol/L (3.4-5.1); Sodium 136 mmol/L (137-145); Total Protein 7.3 g/dL (6.3-8.2)
[2024-08-20 22:46] LABS: NT-proBNP (BNP-Adult 18+) 56 pg/mL (<125); Troponin I < 0.012 ng/mL (0.01-0.034)
[2024-08-20 23:55] VITALS: O2SAT 100
[2024-08-20 23:56] VITALS: BP 193/82; PULSE 67; RESP 18; O2SAT 97
--- NOTE | 2024-08-21 00:01 | PC.NURSE ---
Pt ambulatory around department without difficulty or assistance.
--- NOTE | 2024-08-21 01:43 | ED.GENADULT ---
HPI - General Adult General Chief complaint: Hypertension Stated complaint: high bp, doesn't feel right Time Seen by Provider: 08/21/24 01:43 Source: patient Mode of arrival: Ambulatory History of Present Illness HPI narrative: 68-year-old female history of hypothyroidism who presents with complaint of elevated blood pressure starting yesterday. Patient was seen in May had somewhat elevated blood pressures at that time states she continued to monitor them they improved over time she followed up with primary care they continued to keeps happening them averaging about 130s to 140 systolic. Starting yesterday patient started to notice she did not feel as good she would checked her blood pressure and it was in the 150s, monitoring into today was up into the 160s at home. Patient states she has a funny feeling in her head she states it has not pain but does state a dull headache, she denies any sharp or sudden onset of pain, new loss of consciousness. She has had some mild nausea. States she would some chest pain earlier in the day but none since. She denies any shortness of breath. No vomiting. No issues with bowel movements, no new urinary changes. No swelling in extremities. Patient states she was on levothyroxine currently. No tobacco, occasional alcohol, no recreational drugs. 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 Since then she has secured 6 hours, 6 days weekly of adult care for her mother. Patient states in the last week she has had some more behavioral changes but did not feel that she was particularly stressed by this. Related Data Home Medications Medication Instructions Recorded Confirmed levothyroxine 125 mcg tablet 112 mcg PO QDAY #0 tabs 01/31/21 08/20/24 (Synthroid) melatonin 3 mg capsule 3 mg PO BEDTIME PRN Insomnia 01/31/21 08/20/24 Previous Rx's Medication Instructions Recorded lisinopril 10 mg tablet 10 mg PO DAILY #10 tabs 08/21/24 Allergies Allergy/AdvReac Type Severity Reaction Status Date / Time cephalexin [From Keflex] Allergy Mild rash Verified 05/11/24 18:55 cilastatin [From Primaxin] Allergy Mild rash Verified 05/11/24 18:55 imipenem [From Primaxin] Allergy Mild rash Verified 05/11/24 18:55 Penicillins Allergy Mild rash Verified 05/11/24 18:55 Review of Systems Review of Systems ROS Unobtainable: All systems reviewed & are unremarkable except as noted in HPI and below Patient History Medical History COVID-19 virus infection Family History Father Loud snoring Heart disease Mother Dementia Family/Other Sleep apnea Obesity Diabetes mellitus Depression Bipolar disorder ADD (attention deficit disorder) Social History Smoking Status: Never smoker Smoking Status: Never smoker alcohol intake frequency: holidays/special occasions only Alcohol type: wine Substance Use Type: does not use Exam Narrative Exam Narrative: GENERAL: Alert and oriented x three, well-appearing elderly female in mild distress. HEENT: Head normocephalic, atraumatic, EOMI, pupils reactive, face symmetric, moist mucous membranes, no facial droop. NECK: Supple, full range of motion CARDIOVASCULAR: Regular rate and rhythm without murmurs, rubs or gallops. No edema, no JVD. RESPIRATORY: Breath sounds equal bilaterally, no wheezes rales or rhonchi. ABDOMEN: Soft, nontender. Normoactive bowel sounds all 4 quadrants. No guarding or rebound, rigidity, no mass : No CVA tenderness EXTREMITIES: Normal range of motion, no clubbing or edema. Neurovascularly intact NEUROLOGICAL: Cranial nerves II through XII grossly intact. Moving all extremities SKIN: Warm, dry, no petechiae, no rashes or lesions. Initial Vital Signs Initial Vital Signs: Vital Signs Temperature 97.5 F L 08/20/24 21:43 Pulse Rate 68 08/20/24 21:43 Respiratory Rate 16 08/20/24 21:43 Blood Pressure 194/85 H 08/20/24 21:43 Pulse Oximetry 99 08/20/24 21:43 Oxygen Delivery Method Room Air 08/20/24 21:43 Course Orders Ordered: ED Orders 08/20/24 21:51 XR chest 1V Stat EKG-12 Lead Stat 08/20/24 22:13 Complete Blood Count AUTO DIFF Stat Comprehensive Metabolic Panel Stat Lipase Stat Magnesium Stat NT-proBNP (BNP-Adult 18+) Stat PTT Partial Thromboplastin Ye Stat Prothrombin Time INR Stat Troponin & CK Cardiac Panel Stat 08/21/24 02:20 CT head/brain wo con Stat Discontinued Medications Aspirin (Aspirin 81 Mg Chew Tab) 324 mg PO NOW ONE Stop: 08/20/24 21:51 Lisinopril (Lisinopril 10 Mg Tablet) 10 mg PO NOW ONE Stop: 08/21/24 02:21 Last Admin: 08/21/24 02:43 Dose: 10 mg Documented By: ASA Vital Signs Vital signs: Vital Signs - 8 hr 08/20/24 21:43 08/20/24 23:55 08/20/24 23:56 Temperature 97.5 F L Pulse Rate 68 67 Respiratory Rate 16 18 Blood Pressure 194/85 H 193/82 H Pulse Oximetry 99 100 97 Oxygen Delivery Method Room Air Room Air 08/21/24 01:54 08/21/24 03:19 Temperature Pulse Rate 66 59 L Respiratory Rate 16 18 Blood Pressure 190/81 H 170/73 H Pulse Oximetry 97 96 Oxygen Delivery Method Room Air Room Air Medical Decision Making Lab Data 08/20/24 22:13 08/20/24 22:13 Labs: Lab Results 08/20/24 Range/Units 22:13 WBC 5.3 (4.5-11.0) X10^3/uL RBC 4.17 (4.0-5.2) X10^6/uL Hgb 10.8 L (12.0-16.0) g/dL Hct 33.0 L (36-46) % MCV 79.1 L (80-100) fL MCH 25.9 L (26-34) PG MCHC 32.7 (30-36) % RDW 15.5 H (11.6-14.8) % Plt Count 390 (150-400) X10^3/uL Neut % (Auto) 50.9 (50-75) % Lymph % (Auto) 30.7 (25-40) % [place] % (Auto) 13.1 (3-14) % Eos % (Auto) 4.4 H (2-4) % Baso % (Auto) 0.9 (0-2) % Neut # (Auto) 2700 (8218-5568) /uL Lymph # (Auto) 1600 (2125-4816) /uL [place] # (Auto) 700 (0-900) /uL Eos # (Auto) 200 (0-450) /uL Baso # (Auto) 0 (0-100) /uL PT 10.1 (9.4-12.5) SECONDS INR 0.9 (0.9-1.3) APTT 31 (25.1-36.5) SECONDS Sodium 136 L (137-145) mmol/L Potassium 3.5 (3.4-5.1) mmol/L Chloride 103 (98-107) mmol/L Carbon Dioxide 27 (22-32) mmol/L BUN 18 H (7-17) mg/dL Creatinine 0.93 (0.52-1.04) mg/dL Estimated GFR > 60 (>60) mL/min BUN/Creatinine Ratio 19.4 (6-22) Glucose 100 (80-110) mg/dL Calcium 9.3 (8.4-10.2) mg/dL Magnesium 1.7 (1.6-2.3) mg/dL Total Bilirubin 0.3 (0.2-1.3) mg/dL AST 27 (14-36) IU/L ALT 25 (<35) IU/L Alkaline Phosphatase 74 (38-126) U/L Total Creatine Kinase 154 H (30-135) U/L Troponin I < 0.012 (0.01-0.034) ng/mL NT-Pro-B Natriuret Pep 56 (<125) pg/mL Total Protein 7.3 (6.3-8.2) g/dL Albumin 4.2 (3.5-5.0) g/dL Globulin 3.1 (1.7-4.1) g/dL Albumin/Globulin Ratio 1.4 (1.0-2.8) Lipase 93 (23-300) U/L Imaging Data Chest x-ray: Radiologist's Impression: [address] [address] XRay Report Signed Patient: Alice Clement MR#: [id number] : 1955 Acct:[id number] Age/Sex: 68 / F Date of Service: 08/20/24 Loc: ED Accession Number: [id number] Procedure: XR chest 1V Ordering Provider: Agatha Pierson D.O. PROCEDURE: XR CHEST 1V INDICATIONS: chest pain TECHNIQUE: One view of the chest was acquired. COMPARISON: [facility], JEAN, XR CHEST 1V, 05/11/2024, 18:50. FINDINGS: Surgical changes and devices: None. Lungs and pleura: Lungs are clear. No pleural effusions or pneumothorax. Mediastinum: Aortic arch calcifications. Mediastinal contours appear normal. Heart size is normal. Bones and chest wall: No suspicious bony lesions. Overlying soft tissues appear unremarkable. IMPRESSION: No acute cardiopulmonary abnormality is seen. Dictated by: Shashank Fay M.D. on 08/20/2024 at 22:32 Approved by: Shashank Fay M.D. on 08/20/2024 at 22:32 ECG Data Attestation: I personally reviewed and interpreted this ECG as follows: Interpretation: Sinus bradycardia rate of 56 PA 190 4q RS of 92 QTC of 403, no acute ST elevation or depression noted. Sinus Anurag, left anterior fascicular block. MDM Narrative Medical decision making narrative: Labs show white count of 5.3 hemoglobin of 10.8 prior was 11.3 in May of 2024, patient does have some microcytosis with a MCV of 79 and MCH of 25, platelets are 390. Coags are negative, sodium is 136 potassium 3.5 chloride 103, CO2 is 27, BUN 18 creatinine 0.93 glucose of 100, LFTs are negative total CK is 154 troponins less than 0.012. BNP of 56. Chest x-ray shows no acute change Sinus bradycardia rate of 56 PA 194 QRS of 92 QTC of 403 appears similar to prior from May of 2024. Head CT non-con shows no acute intracranial abnormality brain parenchyma is normal in volume and morphology. No intracranial hemorrhage, mass effect, midline shift or hydrocephalus seen. No abnormal extra fluid collections identified. Visualized paranasal sinuses and mastoid air cell complexes are well aerated bilaterally. Bilateral globes and retrobulbar soft tissues are within normal limits. 68-year-old female here with concern for hypertension describes headache, describes it as dull but for the last, patient was 190 systolic with diastolic in the 80s, no other acute end-organ disease appreciated on her workup so far. Discussed with patient head CT was obtained this is negative for acute change. Patient continues to be persistently elevated was given a dose of oral lisinopril here in the department. Patient was seen in May was hypertensive at that time as well, monitored blood pressure which slowly improved over time she related some of this distress. She did not follow up with primary care she appears to run about 130s to 140 systolic majority of the time with a occasional 150s over about a month of blood pressures that she reviewed with me has been just elevated in the past day. Discussed with patient can continue to monitor or start short course blood pressure medication with her to follow up shortly with her primary care physician. Discharge Plan Departure Patient Disposition: Home Clinical Impression: Headache, Elevated blood pressure reading Activity Restrictions/Additional Instructions: Follow up your physician for recheck. Please call Friday morning to set up an appointment. If you are persistently having elevated blood pressures continued take the lisinopril once daily. Printed prescription is included. Please return if you are having severe headaches, sudden vision changes any difficulty with speech or movement, new chest pain, new shortness of breath, nausea or vomiting, new swelling of your extremities other new or concerning changes. Prescriptions: New lisinopril 10 mg tablet 10 mg PO DAILY Qty: 10 0RF No Action levothyroxine [Synthroid] 125 mcg tablet 112 mcg PO QDAY Qty: 0 melatonin 3 mg capsule 3 mg PO BEDTIME PRN (Reason: Insomnia) Referrals: Kalani Recinos PA-C [Primary Care Provider] - Stand Alone Forms: Patient Portal/API
[2024-08-21 01:54] VITALS: BP 190/81; PULSE 66; RESP 16; O2SAT 97
--- NOTE | 2024-08-21 02:20 | DI.CT.S_ITS ---
PROCEDURE: CT HEAD/BRAIN WO CON INDICATIONS: rivera, htn, feels weird TECHNIQUE: Noncontrast 4.5 mm thick angled axial sections acquired from the foramen magnum to the vertex, with coronal and sagittal reformats. For radiation dose reduction, the following was used: automated exposure control, adjustment of mA and/or kV according to patient size. COMPARISON: None. FINDINGS: Image quality: Diagnostic. CSF spaces: Basal cisterns are patent. No extra-axial fluid collections. The ventricles are symmetric in size and shape. Brain: No intracranial bleeds or masses. There is cerebral volume loss for age, with resultant ventricular and sulcal prominence. There are periventricular and deep white matter chronic small vessel ischemic changes. There is intracranial internal carotid artery atherosclerosis. Skull and face: Calvarium and visualized facial bones appear intact, without suspicious lesions. Sinuses: Visualized sinuses and mastoids are clear. IMPRESSION: No acute intracranial pathology. Findings are concordant with preliminary interpretation provided by [facility]. Dictated by: Jay Koenig M.D. on 08/21/2024 at 6:56 Approved by: Jay Koenig M.D. on 08/21/2024 at 6:58
--- NOTE | 2024-08-21 02:25 | PC.NURSE ---
Pt ambulatory to imaging without difficulty or assistance.
[2024-08-21] MEDS: lisinopriL 10 MG TABLET PO (02:43)
[2024-08-21 03:19] VITALS: BP 170/73; PULSE 59; RESP 18; O2SAT 96
== END 2024-08-21 03:19 | disposition home or self-care (01) ==
PROVIDERS: Emergency Provider Emergency Medicine; PCP Student in an Organized Health Care Education/Training Program
DX: R51.9 Headache, unspecified (principal); R03.0 Elevated blood-pressure reading, without diagnosis of hypertension; R11.0 Nausea; R07.9 Chest pain, unspecified
CPT/HCPCS: 36415; 70450; 71045; 80053; 82550; 83690; 83735; 83880; 84484; 85025; 85610; 85730; 93005; 99284

== ENCOUNTER → 2025-03-30 08:35 | Outpatient (CLI) | payer MEDICARE, OTHER, SELFPAY ==
[2025-03-30 11:12] LABS: Vitamin B12 348 pg/mL (239-931)
[2025-03-30 15:06] LABS: Folate 11.7 ng/mL (2.76-20.0)
[2025-04-01 14:11] LABS: Gastrin 117 pg/mL (0-115)
[2025-04-02 05:09] LABS: Intrinsic Factor Blocking Aby 70.1 AU/mL (0.0-1.1)
== END ==
PROVIDERS: PCP Family Medicine; Referring Provider Internal Medicine Gastroenterology; Visit Provider Internal Medicine Gastroenterology
DX: K29.40 Chronic atrophic gastritis without bleeding (principal)
CPT/HCPCS: 36415; 82607; 82746; 82941; 86340

== ENCOUNTER → 2025-05-27 14:25 | Outpatient (CLI) | payer MEDICARE, OTHER, SELFPAY ==
[2025-05-27 15:41] LABS: Lipase 62 U/L (23-300)
== END ==
LOC: LAB 14:26
PROVIDERS: PCP Family Medicine; Referring Provider Family Medicine; Visit Provider Family Medicine
DX: D64.9 Anemia, unspecified (principal); K29.40 Chronic atrophic gastritis without bleeding; E03.9 Hypothyroidism, unspecified
CPT/HCPCS: 36415; 82784; 83516; 83690